=== PATIENT | male | born 1975 | race Two or more races ===

== ENCOUNTER 2021-02-12 19:56 | Emergency (ER) | payer OTHER ==
[~2021-02-12] VITALS: Ht 170.2 cm; Wt 83.9 kg
[2021-02-12 21:40] VITALS: BP 136/84
[2021-02-13] MEDS ORDERED: TETANUS-DIPTH-ACEL PERTUSSIS 0.5ML SYR Tdap IM ONE (00:45)
== END 2021-02-13 01:27 | disposition home or self-care (01) ==
LOC: ER 19:56
DX: S61.339A Puncture wound without foreign body of unspecified finger with damage to nail, initial encounter (principal); E11.9 Type 2 diabetes mellitus without complications; W22.8XXA Striking against or struck by other objects, initial encounter; Y93.89 Activity, other specified; Y92.89 Other specified places as the place of occurrence of the external cause; Y99.8 Other external cause status
CPT/HCPCS: 90471; 90715

== ENCOUNTER 2023-03-28 16:43 | Emergency (ER) | payer MEDICAID, OTHER ==
[~2023-03-28] VITALS: Ht 170.2 cm; Wt 84.2 kg
[2023-03-28 18:23] LABS: Urine Bacteria NONE SEEN /hpf (None Seen); Urine Blood Negative /uL (Negative); Urine Clarity Clear (Clear); Urine Color Colorless (Yellow); Urine Protein, UAD Negative (Negative); Urine Specific Gravity 1.031 (1.001-1.035); Urine Urobilinogen Normal (Negative); Urine WBC 60 /hpf (0 - 3)
[2023-03-28] MEDS ORDERED: DOXY-448 PO (21:13)
[2023-03-28] MEDS ORDERED: cefTRIAXone SOD 500 MG VL IM ONE (21:15)
[2023-03-28 21:26] VITALS: BP 115/81; PULSE 75; RESP 18; TEMP 98; O2SAT 99
== END 2023-03-28 21:46 | disposition home or self-care (01) ==
LOC: ER 16:43
DX: A64 Unspecified sexually transmitted disease (principal); E11.9 Type 2 diabetes mellitus without complications; I10 Essential (primary) hypertension; F17.210 Nicotine dependence, cigarettes, uncomplicated
CPT/HCPCS: 81001; 96372; 99283; J0696

== ENCOUNTER 2023-04-18 19:06 | Emergency (ER) | payer MEDICAID ==
[~2023-04-18] VITALS: Ht 170.2 cm; Wt 84.0 kg
[~2023-04-18 19:06] MED LIST: DOXY-448 PO
[2023-04-18 19:30] VITALS: BP 108/69; PULSE 63; RESP 18; O2SAT 100
== END 2023-04-18 23:38 | disposition left against medical advice (07) ==
LOC: ER 19:06
DX: K08.89 Other specified disorders of teeth and supporting structures (principal); Z53.21 Procedure and treatment not carried out due to patient leaving prior to being seen by health care provider